=== PATIENT | male | born 1985 | race Caucasian/White ===

== ENCOUNTER 2021-02-03 12:34 | Emergency (ER) | payer MEDICAID, SELFPAY ==
[2021-02-03 12:54] VITALS: BP 130/75; PULSE 75; RESP 17; TEMP 36.7
--- NOTE | 2021-02-03 13:00 | DI.RAD_ITS ---
EXAM: XR KNEE LT 4V+ CLINICAL HISTORY: stepped out of truck, felt pop. TECHNIQUE: 2D digital imaging was performed. COMPARISON: No exams were available for comparison FINDINGS: There is no evidence of fracture nor obvious joint effusion. No osseous lesions. Bone density noemy l. No obvious degenerative changes. No patellar displacement. IMPRESSION: No significant radiographic findings. DATA REPOSITORY: RADIATION DOSE DELIVERED:
--- NOTE | 2021-02-03 13:53 | W.ED.GENAD ---
Discharge Plan Disposition Patient Disposition: HOME Condition: Stable Discharge Details Clinical Impression: Knee pain Primary Care Provider: Caron Olson ED Provider: Timmy Wolfe Discharge Instructions Instructions: Knee Pain (ED) Additional Instructions: X-ray is unremarkable. Rest, elevate, cool compresses every 2 hours for 20 minutes. Wear knee immobilizer, use crutches, weight-bear as tolerated, advance activity as tolerated. [id number] Tylenol and/or Motrin as directed for discomfort. Please watch for new or worsening symptoms and return to the ER for any concerns. I have placed you on the orthopedic list to help expedite outpatient orthopedic care. I recommend contacting the office of Dr. Pacheco in the next couple of days if you are not doing much better with conservative care. Referrals: Jose Luis Pacheco MD [ [facility] STAFF PHYSICIAN] - Discharge Data Discharge Date/Time-TO BE ENTERED AT DEPARTURE: 02/03/21 13:14 Medical Decision Making 35-year-old gentleman jumping out of a truck bed squatting down feeling a sharp pain, pop, burning sensation along the left medial knee. Clinically he appears well, nontoxic. Neuro, vascular, tendon intact. He is using crutches that he brought from home. There is some swelling and tenderness to palpation as well as discomfort with varus stress. Knee appears to be stable although somewhat guarded based upon acute injury. No distracting injuries. No numbness, tingling, weakness. Based upon the mechanism, higher suspicion for soft tissue injury, internal derangement, etc. but will obtain x-ray to rule any bony involvement. X-ray reviewed by me and confirmed by radiology as negative. Discussed negative x-ray with patient. Discussed plan and disposition. Patient already has crutches, will provide with a soft long leg immobilizer. She will use [id number] anti-inflammatory medications, rest, cool compresses, advance activity as tolerated. I have placed him on the orthopedic list to help expedite outpatient care if he is not improving with conservative measures. Patient is comfortable with this plan and has no additional questions or concerns. Medical Records Medical records reviewed: Yes I reviewed the patient's medical records. HPI General Mode of arrival: ambulatory. Date/Time Provider Initiated Documentation: 02/03/21 12:47. Limitations to Documentation: no limitations. Information obtained by: patient. HPI Narrative: This is a 35-year-old gentleman, denies any significant past medical history. He reports that roughly 2-1/2 hours ago he was jumping out of a truck bed, squatted down deeply and felt a sharp pain-pop to the left knee along the anterior medial aspect. He took Tylenol without much relief. He states the pain is moderate at rest worse with movement or attempting to ambulate. He feels what he describes as a burning sensation. He denies any pain in his hip, calf, ankle, foot. Denies any numbness, tingling, weakness. Denies any other injury. He denies any pain directly over his patella. He reports his primary concern is that of an avulsion fracture Related Data Allergies Allergy/AdvReac Type Severity Reaction Status Date / Time Penicillins Allergy Severe Anaphylaxsi Unverified 02/03/21 12:59 s General Stated Complaint: Orthopedic KENNA: 4 Review of Systems Constitutional Constitutional: Denies weakness Gastrointestinal Gastrointestinal: Denies nausea and Denies vomiting Musculoskeletal Musculoskeletal: Denies numbness, Reports stiffness and Denies tingling Integumentary/Breasts Skin/Breast: Denies rash Neurologic Neurologic: Denies numbness, Denies tingling and Denies weakness [facility] Surgical History Tonsillectomy Vasectomy Social History Smoking/Tobacco Use Status: Former Tobacco Use Smoking risk assessment performed?: Yes Drug use: Daily Do you feel safe at home: Yes Do you feel safe in your relationship?: Yes Exam Const General: cooperative, healthy appearing, comfortable and no acute distress Orientation: alert and awake [facility] Head: normal to inspection, normocephalic and atraumatic Eyes General: appearance normal, both eyes and all related structures Conjunctivae: conjunctivae normal Neck Neck: normal visual inspection, trachea midline and supple Resp Effort & Inspection: normal respiratory effort and able to speak in complete sentences Cardio Rate: regular rate Rhythm: regular rhythm Skin General skin exam: no rashes or lesions noted Neuro General: patient alert, patient awake, moves all extremities and no focal motor deficits Cognition: normal cognition Speech: speech normal Gait: gait assisted Method: crutches Motor: muscle tone normal throughout Sensory Exam: no sensory deficits noted Extrem General: full ROM and capillary refill normal Left lower extremity: full ROM, normal capillary refill and knee Details: abnormal to inspection, tenderness, swelling, normal ROM and knee ligament exam normal Details: varus stress test normal (Increased discomfort); no ecchymosis and no deformity Knee images: 1. Diffuse discomfort, minimal swelling. Skin is intact. Patient is able to fully extend his lower extremity and flex to 90 degrees. Neuro, vascular, tendon intact. Skin is intact. Without erythema or ecchymosis. Hip, ankle, foot unremarkable. Normal pedal pulse Psych Appearance: grossly normal Mental Status: mental status grossly normal Course Vital Signs Vital signs: Vital Signs Temperature 36.7 C 02/03/21 12:54 Pulse 75 02/03/21 12:54 Respiratory Rate 17 02/03/21 12:54 Blood Pressure 130/75 02/03/21 12:54 Temperature 36.7 C 02/03/21 12:54 Temperature Source Temporal Artery Scan 02/03/21 12:54 Pulse 75 02/03/21 12:54 Respiratory Rate 17 02/03/21 12:54 Respiratory Effort 02/03/21 13:00 Blood Pressure 130/75 02/03/21 12:54 Pain Level 3 02/03/21 13:00
== END 2021-02-03 13:14 | disposition home or self-care (01) ==
PROVIDERS: Emergency Provider Physician Assistant; PCP Nurse Practitioner Family
DX: S89.82XA Other specified injuries of left lower leg, initial encounter (principal); X58.XXXA Exposure to other specified factors, initial encounter; Y93.39 Activity, other involving climbing, rappelling and jumping off
CPT/HCPCS: 99283; 73564

== ENCOUNTER 2021-11-07 18:20 | Emergency (ER) | payer MEDICAID, SELFPAY ==
[2021-11-07 18:55] VITALS: BP 121/66; PULSE 74; RESP 14; TEMP 36.8; O2SAT 96
--- NOTE | 2021-11-07 19:15 | DI.RAD_ITS ---
Exam(s) XR ELBOW LT COMPLETE EXAM: XR ELBOW LT COMPLETE CLINICAL HISTORY: fall, posterior pain. TECHNIQUE: 2D digital imaging was performed of the left elbow. Three images were obtained. AP, lat eral and oblique views were obtained. COMPARISON: No exams were available for comparison FINDINGS: BONES: No acute fracture is present. No bony destructive lesion is seen. JOINTS: The elbow is normally aligned. No joint effusion is seen. SOFT TISSUE: Normal. IMPRESSION: Unremarkable radiographs of the left elbow. DATA REPOSITORY: RADIATION DOSE DELIVERED:
--- NOTE | 2021-11-07 19:21 | ED.GENADUL_ITS ---
Discharge Plan Disposition Patient Disposition: HOME Condition: Good Discharge Details Clinical Impression: Contusion of left elbow, Contusion of left little finger, Back muscle spasm Primary Care Provider: Caron Olson ED Provider: Tiara Hudson Home Meds and New Rx's Prescriptions: No Action No Known Home Meds RF: 0 Discharge Instructions Instructions: Cyclobenzaprine (By mouth), Contusion in Adults (ED), Muscle Spasm (ED) Additional Instructions: Your imaging of your hand, elbow is also reassuring. As discussed, your back exam is most concerning for muscle spasm. Pelvic spasm, I am sending you home with Flexeril which is a muscle relaxant. Please take this only as directed. Do not consume alcohol or drive while using this medication as it can be charlene ting. In regard to your elbow discomfort, you are being placed in a sling to help with pain. Please come out of it frequently as possible and perform range of motion activities with your shoulder and elbow. Elevate your finger, I do not note any fracture or significant ligamentous injury. However, I would like for you to have this reevaluated by your primary care physician in 1 week. Please call tomorrow to schedule follow-up appointment. Until then, please continue with your splint. If you develop any new or worsening symptoms please seek care urgently once again. Referrals: Caron Olosn [Primary Care Provider] - Discharge Data Discharge Date/Time-TO BE ENTERED AT DEPARTURE: 11/07/21 20:39 Medical Decision Making Patient is a pleasant [id number] 36-year-old male presenting today with chief complaint of left upper extremity pain. He reports that he tripped over his cat and subsequently laid down on his left side striking his elbow and pinky. Denies striking his head, loss of consciousness. Denies any altered sensation. Also has some muscle tenderness to the left-sided back. On exam, patient appears nontoxic. Wedding ring on the left hand was promptly removed and the swelling and discomfort in this area. Patient is full flexion of all of his digits, pain with extension digit, particularly at the PIP joint. Full range of motion of the wrist with no discomfort. No pain over the anatomical snuffbox. No pain with axial thumb loading. Patient does report that he has a chronic deformity to the fifth digit on the left hand associated with previous boxer's fracture. He is a full extension of the elbow, limitation of flexion secondary to discomfort over the olecranon. No break in the skin, swelling, discoloration is appreciated. Patient is neurovascularly intact. He has no evidence to suggest head trauma, C-spine tenderness, chest, abdomen pelvis pain. On the back, patient has no midline tenderness, no step-off deformity. She had muscle spasm along the left aspect of the lumbar spine at area of maximal tenderness. Concern for potential fracture of olecranon as well possible boxer's fracture. I suspicion for lumbar spine fracture based on exam but will evaluate for this with imaging as well. Concern for muscle tenderness region. FINDINGS: Bones/joints: No evidence of acute fracture. Negative for dislocation. Deformity and bowing of the 5th metacarpal are noted, chronic in appearance. Negative for bony erosion or destructive change. Soft tissues: Soft tissue swelling noted adjacent to the 5th metacarpal. Negative for soft tissue air. No foreign bodies observed. IMPRESSION: No acute osseous abnormality. Question chronic healed fracture at the 5th metacarpal. FINDINGS: Bones/joints: No evidence of fracture. Normal alignment. No significant joint space narrowing. Normal anterior fat pad. No evidence of joint effusion. Soft tissues: Negative for radiopaque foreign body. IMPRESSION: No acute osseous abnormality. If symptoms persist, follow-up imaging advised. FINDINGS: Bones/joints: Negative for compression fracture. Endplates are intact. Negative for anterior or posterior translation of vertebral bodies. Facet hypertrophy and sclerosis are noted at L4-L5 and L5- S1. Anterior margin of the sacrum is intact. Oblique views are negative for pars defects. Soft tissues: Unremarkable. IMPRESSION: No acute osseous abnormality. If symptoms persist, follow-up imaging advised. Discussed the findings with the patient. He appears much more comfortable after Tylenol, ibuprofen and a Lidoderm patch application to his back. Ligamentous exam of the fifth digit, location primary pain is, she has 5 and 5 strength flexion but extension at the PIP joint slightly weak. No significant deformity or inability to do so. I would like him to have this reevaluated once the swelling and discomfort goes down. In the interim, plan to splint is for an extended position. Will place sling to help with discomfort at the elbow. However, I did recommend he come out of this frequently throughout the case today only for the next 24 to 48 hours. Encouraged to come out of this, he complete range of motion of the elbow and shoulder. Return precautions were discussed. All the questions and concerns were addressed and he is in agreement this plan. HPI General Mode of arrival: ambulatory . Date/Time Provider Initiated Documentation: 11/07/21 19:00 . Limitations to Documentation: no limitations . Information obtained by: patient and RN notes reviewed . History of Present Illness 36 year old M presents to the emergency department with the chief complaint of left arm injury after fall, described as moderate, with i ntensity rated at 6. Quality is described as aching, and is localized to the left and upper extremity. Patient reports no radiation. Patient started experiencing this minute(s) and it has been constant. Immobilization improves symptom(s), Movement worsens symptoms . Patient notes no other symptoms.. Patient did receive the following treatments prior to arrival, none Related Data Home Medications Medication Instructions Recorded Confirmed Unknown [No Known Home Meds] 02/10/21 11/07/21 Allergies Allergy/AdvReac Type Severity Reaction Status Date / Time Penicillins Allergy Severe Anaphylaxsi Unverified 11/07/21 18:58 s General Stated Complaint: Orthopedic KENNA: 4 Review of Systems Constitutional Constitutional: Reports as per HPI, Denies headache(s) and Denies weakness Eyes Eyes: Reports as per HPI and Denies change in vision ENT Ears, Nose, Mouth, and Throat: Denies headache(s) Cardiovascular Cardiovascular: Reports as per HPI, Denies chest pain and Denies dyspnea Respiratory Respiratory: Reports as per HPI, Denies cough, Denies pain on inspiration and Denies dyspnea Gastrointestinal Gastrointestinal: Reports as per HPI, Denies abdominal pain, Denies nausea and Denies vomiting Genitourinary Genitourinary: Reports as per HPI and Denies urinary incontinence Musculoskeletal Musculoskeletal: Reports as per HPI Integumentary/Breasts Skin/Breast: Reports as per HPI and Denies rash Neurologic Neurologic: Reports as per HPI, Denies headache(s), Denies localized weakness, Denies paresthesias and Denies weakness PFSH All Active Problems (Updated 11/07/21 @ 20:33 by FRANCESCA Kelley) Contusion of left elbow (Acute) Contusion of left little finger (Acute) Back muscle spasm (Acute) Muscle strain of left thigh (Acute) Admission for vasectomy (Acute) Knee pain (Acute) Surgical History Tonsillectomy Vasectomy Social History Smoking/Tobacco Use Status: Former Tobacco Use Smoking risk assessment performed?: Yes Alcohol Intake: current Alcohol Intake frequency: 0-2 drinks per day Alcohol type: beer Drug use: Daily Substance use type: marijuana Do you feel safe at home: Yes Do you feel safe in your relationship?: Yes Exam Const General: cooperative, healthy appearing, uncomfortable (splinting left arm, appears uncomfortable), no acute distress, well developed and well groomed Nutritional Appearance: well nourished and overweight Orientation: alert, awake and oriented x3 HENMT Head: normal to inspection, no palpable skull fracture, normocephalic and atraumatic Ears: hearing grossly normal bilaterally and external ears normal General nose exam: external nose normal Eyes General: appearance normal, both eyes and all related structures Alignment and Position: alignment normal Periorbital: periorbital findings normal Neck Neck: normal visual inspection, full ROM, trachea midline and supple Chest Chest: normal inspection of the chest, normal palpation of entire chest wall, no crepitus and no localized rib tenderness Resp Effort & Inspection: normal respiratory effort, able to speak in complete sentences and no respiratory distress Auscultation: clear to auscultation bilaterally, no rales, no rhonchi and no wheezes Cardio Rate: regular rate Rhythm: regular rhythm Heart Sounds: S1 normal and S2 normal GI Inspection: normal to inspection, no abdominal wall ecchymosis, no edema and non-distended Palpation: soft, no hepatosplenomegaly, not firm, no guarding, no pulsatile masses, not rigid and nontender Auscultation: normal bowel sounds Back/Spine/Pelvis Back: no CVA tenderness Cervical Spine: normal cervical lordosis and cervical ROM normal Thoracic/Lumbar Spine: thoracic and lumbar spine normal to inspection, thoraco- lumbar ROM normal, No thoraco-lumbar ROM limited, No thoraco-lumbar spasm and No thoracic spinal tenderness Pelvis: no pain with anterior-posterior compression and no pain with lateral compression Skin General skin exam: no rashes or lesions noted Lesions: no lesions Rashes: no rashes Trauma: no lacerations or abrasions Wounds: no wounds Neuro General: patient alert, patient awake, patient oriented x3, gait normal, tone normal and moves all extremities Cranial Nerves: CN's II-XI intact bilaterally Cognition: normal cognition Speech: speech normal Gait: normal gait Motor: muscle tone normal throughout and strength 5/5 throughout Sensory Exam: no sensory deficits noted (no saddle paresthesias) Extrem General: normal to inspection and capillary refill normal Right upper extremity: normal to inspection Left upper extremity: normal to inspection, normal capillary refill, no joint enlargement, shoulder/upper arm Details: inspection abnormal, elbow/forearm Details: normal to inspection, tenderness Location: of the olecranon and distal pulses intact; no swelling, ROM abnormal (full flexion, pain posteriorly with full extension, full supination/pronation), no unusual warmth, no abrasions, no lacerations, no ecchymosis and no deformity, wrist Details: normal to inspection, normal ROM, normal vascular exam and radial pulse present; no tenderness, no swelling and no deformity and hand Details: normal to inspection, normal capillary refill, neuromotor exam normal (slightly weak with extension at PIP 5th digit but still able to do it), neurosensory exam normal, tendon exam normal, tenderness Location: of the 5th digit Location: involving the entire digit and no swelling; no unusual warmth, no swelling and no ecchymosis Psych Appearance: grossly normal and well kempt Mental Status: mental status grossly normal Speech and Movement: speech and movement normal Course Vital Signs Vital signs: Vital Signs Temperature 36.8 C 11/07/21 18:55 Pulse 74 11/07/21 18:55 Respiratory Rate 14 11/07/21 18:55 Blood Pressure 121/66 11/07/21 18:55 Pulse Oximetry 96 11/07/21 18:55 Temperature 36.8 C 11/07/21 18:55 Temperature Source Temporal Artery Scan 11/07/21 18:55 Pulse 74 11/07/21 18:55 Respiratory Rate 14 11/07/21 18:55 Respiratory Effort Non-Labored 11/07/21 18:59 Blood Pressure 121/66 11/07/21 18:55 Blood Pressure Position Sitting 11/07/21 18:55 Pulse Oximetry 96 11/07/21 18:55 Oxygen Delivery Method Room Air 11/07/21 18:55 Oxygen Flow Rate 0 11/07/21 18:55 Pain Level 6 11/07/21 18:55 PAWSS Have you Been Recently Intoxicated or Drunk Within the Last 30 days?: No Have you Ever Experienced Previous Episodes of Alcohol Withdrawal?: No Have you ever Experienced Withdrawal Seizures?: No Have you ever Experienced Delirium Tremens(DT)s?: No Have you ever undergone Alcohol Rehabilitation Treatment (i.e, inpt ot outpatient treatment programs)?: No Have you ever Experienced Blackouts?: No Have you ever Combined Alcohol with other Downers within the last 90 days?: No Have you ever Combined Alcohol with any other Substance of Abuse during the last 90 days?: No Positive Blood Alcohol level on Presentation? [PCS.BAL]: No Evidence of Increased Autonomic Activity (i.e. HR>120, tremor, sweating, agitation, nausea)?: No Result: 0
[2021-11-07] MEDS: Ibuprofen 600 MG TAB PO (19:30)
[2021-11-07] MEDS: Acetaminophen 500 MG TAB 1000 MG PO (19:30)
[2021-11-07] MEDS: Lidocaine 5% Patch 1 PATCH TP (19:30)
--- NOTE | 2021-11-07 19:51 | DI.RAD_ITS ---
Exam(s) XR HAND LT COMPLETE EXAM: XR HAND LT COMPLETE CLINICAL HISTORY: difficulty with ROM of 5th digit. TECHNIQUE: 2D digital imaging was performed of the left hand. Three views were obtained. AP, later al and oblique views were obtained. COMPARISON: No exams were available for comparison FINDINGS: BONES: No acute fracture is present. No bony destructive lesion is seen. There is a bowing deformity of the 5th metacarpal most suggestive of old healed fracture. JOINTS: No dislocation present. SOFT TISSUE: Soft tissue swelling adjacent to the 5th metacarpal. IMPRESSION: No acute fracture or dislocation. DATA REPOSITORY: RADIATION DOSE DELIVERED:
--- NOTE | 2021-11-07 19:51 | DI.RAD_ITS ---
Exam(s) XR LUMBAR SPINE COMPLETE EXAM: XR LUMBAR SPINE COMPLETE CLINICAL HISTORY: fall, pain along left side. TECHNIQUE: 2D digital imaging was performed of the lumbar spine. Five images were obtained. AP, la teral, right oblique, left oblique and L5-S1 spot views were obtained. COMPARISON: No exams were available for comparison FINDINGS: BONES: No fracture or destructive lesion. Vertebral bodies are unremarkable. Degenerative changes of the facets are seen at L4-5 and L5-S1. DISKS: Intervertebral disc spaces are maintained. ALIGNMENT: Lumbar spinal alignment is within normal limits. No spondylolysis or spondylolisthesis. SOFT TISSUE: Normal. IMPRESSION: No acute fracture or subluxation. DATA REPOSITORY: RADIATION DOSE DELIVERED:
--- NOTE | 2021-11-07 20:15 | DI.VRAD_ITS ---
PROCEDURE INFORMATION: Exam: XR Lumbosacral Spine Exam date and time: 11/07/2021 7:23 PM Age: 36 years old Clinical indication: Injury or trauma; Blunt trauma (contusions or hematomas); Injury date: 11/07/21; Injury details: Fall down stairs; Patient HX: Pain along left side TECHNIQUE: Imaging protocol: XR of the lumbosacral spine. Views: 4 or 5 views. COMPARISON: No relevant prior studies available. FINDINGS: Bones/joints: Negative for compression fracture. Endplates are intact. Negative for anterior or posterior translation of vertebral bodies. Facet hypertrophy and sclerosis are noted at L4-L5 and L5-S1. Anterior margin of the sacrum is intact. Oblique views are negative for pars defects. Soft tissues: Unremarkable. IMPRESSION: No acute osseous abnormality. If symptoms persist, follow-up imaging advised. Dictated and Authenticated by: Ananda Peace MD. Ordering:KEZIA Menjivar MD
--- NOTE | 2021-11-07 20:17 | DI.VRAD_ITS ---
PROCEDURE INFORMATION: Exam: XR Left Hand Exam date and time: 11/07/2021 7:23 PM Age: 36 years old Clinical indication: Injury or trauma; Fall; Blunt trauma (contusions or hematomas); Hand; Left; Injury date: 11/07/21; Injury details: Difficulty with rom of 5th digit TECHNIQUE: Imaging protocol: XR Left hand. Views: 3 or more views. COMPARISON: CR LEFT ELBOW COMPLETE 10/29/2017 3:05 PM FINDINGS: Bones/joints: No evidence of acute fracture. Negative for dislocation. Deformity and bowing of the 5th metacarpal are noted, chronic in appearance. Negative for bony erosion or destructive change. Soft tissues: Soft tissue swelling noted adjacent to the 5th metacarpal. Negative for soft tissue air. No foreign bodies observed. IMPRESSION: No acute osseous abnormality. Question chronic healed fracture at the 5th metacarpal. Dictated and Authenticated by: Ananda Peace MD. Ordering:KEZIA Menjivar MD
--- NOTE | 2021-11-07 20:18 | DI.VRAD_ITS ---
PROCEDURE INFORMATION: Exam: XR Left Elbow Exam date and time: 11/07/2021 7:23 PM Age: 36 years old Clinical indication: Injury or trauma; Blunt trauma (contusions or hematomas); Elbow; Left; Injury date: 10/18/21; Injury details: Fall down stairs; Additional info: Difficulty with rom of 5th digit TECHNIQUE: Imaging protocol: XR Left elbow. Views: 3 or more views. COMPARISON: CR LEFT ELBOW COMPLETE 10/29/2017 3:05 PM FINDINGS: Bones/joints: No evidence of fracture. Normal alignment. No significant joint space narrowing. Normal anterior fat pad. No evidence of joint effusion. Soft tissues: Negative for radiopaque foreign body. IMPRESSION: No acute osseous abnormality. If symptoms persist, follow-up imaging advised. Dictated and Authenticated by: Ananda Peace MD. Ordering:KEZIA Menjivar MD
== END 2021-11-07 20:39 | disposition home or self-care (01) ==
PROVIDERS: Emergency Provider Physician Assistant; PCP Nurse Practitioner Family
DX: S50.02XA Contusion of left elbow, initial encounter (principal); S60.052A Contusion of left little finger without damage to nail, initial encounter; M62.830 Muscle spasm of back; W10.8XXA Fall (on) (from) other stairs and steps, initial encounter; M54.9 Dorsalgia, unspecified
CPT/HCPCS: 99284; 72110; 73080; 73130; 99283

== ENCOUNTER 2022-05-18 12:51 | Emergency (ER) | payer MEDICAID, SELFPAY ==
[2022-05-18] VITALS (45 sets, daily range): BP systolic 104–123; BP diastolic 46–73; PULSE 48–86; RESP 9–22; TEMP 36.5; O2SAT 92–99
--- NOTE | 2022-05-18 12:45 | RT.EKG_ITS ---
APPROVED REPORT Exam: Resting ECG Reason for Exam: SYNCOPE Patient Location: E HR:49 bpm ECG Measurements Heart Rate 49 AXIS SC 149 P 60 QRSd 101 QRS 13 QT 438 T 13 QTc 395 Conclusion Sinus bradycardia...rate< 60 ST elev, probable normal early repol pattern...ST elevation, age<55. Sinus. Benign early repolarization. Peaked T waves. No signficant change from previous EKG. No STEMI.
[2022-05-18] MEDS: Normal Saline 1,000 ML 1000 ML IV ×2 (13:15→14:45)
[2022-05-18 13:22] LABS: Source Nasal/Nares
[2022-05-18 13:28] LABS: HCT 39.8 % (40.0-50.0); HGB 14.2 g/dL (13.5-17.5); MCH 32.7 pg (27.0-33.0); MCHC 35.7 % (32.0-36.0); MCV 92 fL (80-95); MPV 9.6 fL (8.0-11.0); Platelet Count 228 10^3/uL (130-400); RBC 4.34 10^6/uL (4.36-5.78); RDW 11.9 % (11.8-14.1); RDW-SD 40.4 fL; WBC 11.49 10^3/uL (4.4-10.8)
[2022-05-18 13:41] LABS: ALT 62 U/L (16-63); AST 28 U/L (15-37); Albumin 4.2 g/dL (3.4-5.0); Alkaline Phosphatase 48 U/L (46-116); Anion Gap 7.4 mmol/L (3-11); BUN 12 mg/dL (7-18); Bilirubin, Total 0.5 mg/dL (0.2-1.0); CO2 26.6 mmol/L (21.0-32.0); CREATININE 1.1 mg/dL (0.70-1.30); Calcium 8.8 mg/dL (8.5-10.1); Chloride 103 mmol/L (98-107); Glucose 103 mg/dL (74-106); Potassium 3.6 mmol/L (3.5-5.1); Sodium 137 mmol/L (136-145); Total Protein 7.1 g/dL (6.4-8.2); Troponin I < 50 ng/L (<or=60)
--- NOTE | 2022-05-18 13:45 | DI.RAD_ITS ---
Exam(s) XR KNEE RT 4V AP,LAT,MARK,PAT EXAM: XR KNEE RT 4V AP,LAT,MARK,PAT CLINICAL HISTORY: fall with direct injury to patella, r/o fx. TECHNIQUE: 2D digital imaging was performed. Four views. COMPARISON: CR XR KNEE LT 4V+ from 02/03/2021 FINDINGS: BONES: No acute fracture is present. No bony destructive lesion is seen. JOINTS: The knee is normally aligned. No joint effusion is seen. SOFT TISSUE: Normal. IMPRESSION: Unremarkable radiographs of the right knee. DATA REPOSITORY: RADIATION DOSE DELIVERED:
--- NOTE | 2022-05-18 13:45 | DI.CT_ITS ---
Exam(s) CT HEAD CERV SPINE FACIAL WO EXAM: CT HEAD CERV SPINE FACIAL WO CLINICAL HISTORY: fall w/ chin injury, syncope. TECHNIQUE: Imaging Protocol: Axial computed tomography images with coronal and sagittal reformatted images were created and reviewed COMPARISON: No exams were available for comparison FINDINGS: CT Head: Ventricles and Extra axial spaces: Normal in size and morphology for the patient's age. Hemorrhage: None. Cerebral parenchyma: Normal. Midline shift: None. Brainstem/Cerebellum: Normal. Calvarium: Normal. Visualized Paranasal sinuses/Mastoids: Mucous retention cyst left maxillary sinus. Mucosal thickenin g frontal, sphenoid and ethmoid sinuses as well as right maxillary sinus. Soft Tissues: Unremarkable. CT Face: Facial Bones: No definite fracture is noted in facial bones. Sinuses and Mastoids: Mucous retention in both maxillary sinus. Mucosal thickening of the ethmoid a nd sphenoid sinuses as well as frontal sinuses. Mastoid air cells clear. Globes, extraocular muscles, optic nerves and retrobulbar fat: Normal. Upper aerodigestive tract: Normal. Mandible and bilateral temporomandibular joints: Normal. Soft tissues: Normal. CT Cervical Spine: Bones: No acute fracture or subluxation. Degenerative disc changes are seen at C4-5 and C5-6. Soft Tissues: Unremarkable. Lung Apices: Clear. IMPRESSION: 1. No acute intracranial process. 2. No acute fracture or subluxation in the cervical spine. 3. No acute facial fracture. RADIATION DOSE DELIVERED: 2,363.59mGy.cm Total DLP DATA REPOSITORY: All CT scans at this facility are submitted to the National Radiology Data Registry (NRDR) Dose Index Registry (DIR) with the [employer] ([employer]). RADIATION OPTIMIZATION: All CT scans at this facility use at least one of these dose optimization te chniques: automated exposure control; mA and/or kV adjustment per patient size (includes targeted exa ms where dose is matched to clinical indication); or iterative reconstruction.
--- NOTE | 2022-05-18 13:45 | DI.RAD_ITS ---
Exam(s) XR CHEST 2V PA LATERAL EXAM: XR CHEST 2V PA LATERAL CLINICAL HISTORY: syncope, r/o acute disease TECHNIQUE: 2D digital imaging was performed. COMPARISON: CR LEFT CLAVICLE from 10/09/2017 FINDINGS: MEDIASTINUM: Normal. HEART: Normal. PULMONARY VASCULATURE: Normal. LUNGS: Clear. PLEURAL SPACE: No pleural effusion or pneumothorax. BONE:Unremarkable for age. IMPRESSION: No acute abnormality. DATA REPOSITORY: RADIATION DOSE DELIVERED:
--- NOTE | 2022-05-18 13:47 | ED.GENADUL_ITS ---
Discharge Plan Disposition Patient Disposition: HOME Condition: Stable Discharge Details Clinical Impression: Episode of syncope, Contusion of lip, Contusion of right knee, Dizziness Primary Care Provider: SHWETA NUNN ED Provider: Meagan Gaspar Home Meds and New Rx's Prescriptions: No Action No Known Home Meds Discharge Instructions Instructions: Syncope (ED), Contusion in Adults (ED), Dizziness (ED) Additional Instructions: Your labs and imaging today are reassuring and show no evidence of acute concerning or significant findings. Please return the satellite project site monitor to the hospital as directed. You have been placed on care management list to arrange for a follow-up appointment for reevaluation in the next week and for referral to cardiology and/or neurology if indicated. Return immediately to the emergency department if you develop any worsening or new concerning symptoms. Discharge Data Discharge Date/Time-TO BE ENTERED AT DEPARTURE: 05/18/22 17:43 Discharge Physician: Meagan Gaspar Medical Decision Making 1310 -- 37-year-old male presents with syncopal episode followed by dizziness, mouth pain and right knee pain status post fall with syncopal episode. States he has not eaten or drank any water today. Has drank a pot of coffee today. Vitals within normal limits. EKG notes a rate of 49, sinus with likely benign early repolarization. Does not appear significantly different compared to previous EKG 2006. Patient has a contusion and superficial abrasion to the right lower lip. Tongue normal to inspection. He has a superficial abrasion to the right anterior knee with some pain with range of motion. Chest and abdomen nontender. No midline spinal tenderness. No focal deficits. Differential diagnosis includes vasovagal syncope in the setting or dehydration, electrolyte abnormality, arrhythmia, COVID, ACS. History and presentation does not appear consistent with PE, CVA or meningitis. Consider seizure, however there is no report of significant post-ictal episode, tongue laceration or urinary incontinence. Will place an IV, bolus IV fluids, screening labs, CT head, facial bones and cervical spine, chest x-ray and right knee x-ray. We will give a dose of IV Tylenol. 1700 -- Labs and imaging reviewed and unremarkable. COVID-negative. CT imaging of head neck and face negative. X-rays unremarkable. Patient reassessed and he was able to ambulate to the bathroom and denied any dizziness or headache. Patient was given a total of 2 L of fluid and ate a meal and feels much better and is requesting to go home. 48-hour satellite project site monitor placed. Disposition decision made weighing the risks and benefits of hospitalization versus outpatient treatment, the risk for further decompensation, and the patient's wishes. He was placed on care management list to arrange for a follow-up appointment with his primary care doctor within the next week. Usual and customary return precautions given prior to discharge. Medical Records Medical records reviewed: Yes I reviewed the patient's medical records. Imaging Data Radiologic Study: Radiologist's impression: CT HEAD CERV SPINE ? FACIAL WO CLINICAL HISTORY: ? fall w/ chin injury, syncope. ? TECHNIQUE:? Imaging Protocol: Axial computed tomography images with coronal and sagittal reformatted images were created and reviewed COMPARISON:? No exams were available for comparison FINDINGS: CT Head: Ventricles and Extra axial spaces: Normal in size and morphology for the patient's age. Hemorrhage: None. Cerebral parenchyma: Normal. Midline shift: None. Brainstem/Cerebellum: Normal. Calvarium: Normal. Visualized Paranasal sinuses/Mastoids: Mucous retention cyst left maxillary sinus.? Mucosal thickening frontal, sphenoid and ethmoid sinuses as well as right maxillary sinus. Soft Tissues: Unremarkable. CT Face: Facial Bones:? No definite fracture is noted in facial bones. Sinuses and Mastoids:? Mucous retention in both maxillary sinus.? Mucosal thickening of the ethmoid and sphenoid sinuses as well as frontal sinuses.? Mastoid air cells clear.? Globes, extraocular muscles, optic nerves and retrobulbar fat:? Normal. Upper aerodigestive tract: Normal. Mandible and bilateral temporomandibular joints:? Normal. Soft tissues: Normal. CT Cervical Spine: Bones: No acute fracture or subluxation.? Degenerative disc changes are seen at C4-5 and C5-6.? Soft Tissues: Unremarkable. Lung Apices: Clear. IMPRESSION: 1. No acute intracranial process. 2. No acute fracture or subluxation in the cervical spine. 3. No acute facial fracture. XR KNEE RT 4V AP,LAT,MARK,PAT CLINICAL HISTORY: ? fall with direct injury to patella, r/o fx.? TECHNIQUE:? 2D digital imaging was performed.? Four views. COMPARISON:? CR XR KNEE LT 4V+ from 02/03/2021 FINDINGS: BONES: No acute fracture is present. No bony destructive lesion is seen. JOINTS: The knee is normally aligned. No joint effusion is seen. SOFT TISSUE: Normal. IMPRESSION: Unremarkable radiographs of the right knee. XR CHEST 2V PA ? LATERAL CLINICAL HISTORY:? syncope, r/o acute disease TECHNIQUE:? 2D digital imaging was performed. COMPARISON:? CR LEFT CLAVICLE from 10/09/2017 FINDINGS: MEDIASTINUM: Normal.? HEART: Normal. PULMONARY VASCULATURE: Normal. LUNGS: Clear. ? PLEURAL SPACE: No pleural effusion or pneumothorax. BONE:Unremarkable for age.? IMPRESSION: No acute abnormality.? Lab Data Lab results reviewed: Yes I reviewed the patient's lab results. Labs: Laboratory Tests Range/Units 05/18/22 05/18/22 05/18/22 13:12 13:12 13:12 WBC (4.4-10.8) 10^3/uL 11.49 H RBC (4.36-5.78) 10^6/uL 4.34 L Hgb (13.5-17.5) g/dL 14.2 Hct (40.0-50.0) % 39.8 L MCV (80-95) fL 92 MCH (27.0-33.0) pg 32.7 MCHC (32.0-36.0) % 35.7 RDW (11.8-14.1) % 11.9 Plt Count (130-400) 10^3/uL 228 MPV (8.0-11.0) fL 9.6 Immature Gran % See Differential Neutrophils % 36.0 Lymphocytes % 46.0 Atypical Lymphs % 6 Monocytes % 6.0 Eosinophils % 1.0 Basophils % 1.0 Nucleated RBC % (0.0-0.3) % 0.0 Absolute Neutrophils (1.2-6.7) 10^3/uL 4.14 Absolute Lymphocytes (1.2-3.4) 10^3/uL 5.97 H Absolute Monocytes (0.1-0.8) 10^3/uL 0.69 Absolute Eosinophils (0.0-0.7) 10^3/uL 0.11 Absolute Basophils (0.0-0.2) 10^3/uL 0.11 RBC Morphology Normal Sodium (136-145) mmol/L 137 Potassium (3.5-5.1) mmol/L 3.6 Chloride (98-107) mmol/L 103 Carbon Dioxide (21.0-32.0) mmol/L 26.6 Anion Gap (3-11) mmol/L 7.4 BUN (7-18) mg/dL 12 Creatinine (0.70-1.30) mg/dL 1.1 Estimated GFR/1.73 m2 (mL/min/1.73m2) >= 60.00 Glucose (74-106) mg/dL 103 Calcium (8.5-10.1) mg/dL 8.8 Magnesium (1.8-2.4) mg/dL 2.0 Total Bilirubin (0.2-1.0) mg/dL 0.5 AST (15-37) U/L 28 ALT (16-63) U/L 62 Alkaline Phosphatase (46-116) U/L 48 Troponin I (<or=60) ng/L < 50 Total Protein (6.4-8.2) g/dL 7.1 Albumin (3.4-5.0) g/dL 4.2 COVID-19 Source Nasal/Nares SARS-CoV-2 (PCR) (Negative) Negative ECG Data Attestation: I personally reviewed and interpreted this ECG (s) as follows: Interpretation: Rate of 49, sinus, benign early repolarization, no stemi. Peaked T waves, but otherwise no significant change from previous ekg. HPI General Mode of arrival: ambulatory . Date/Time Provider Initiated Documentation: 05/18/22 13:01 . Limitations to Documentation: no limitations . Information obtained by: patient . HPI Narrative: Patient is a 37-year-old male who smokes daily marijuana and drinks 1 beer daily presents for a syncopal episode followed by dizziness prior to arrival. Patient states he drank a pot of coffee and has not drank any water or eaten anything today. He states around noon he stood up to walk into a different room and several minutes later was lying on the ground. He states he does not recall feeling dizzy or lightheaded prior to the fall. He states he hit his left and both knees on the ground. He is complaining of lower lip and chin and right knee pain. He states he stood up quickly shortly after his syncopal episode and felt dizziness which he describes as a spinning sensation and vomited 1 time. He states he has been isolating from his and child who currently have COVID. Patient states he is vaccinated for COVID and has had 4 negative at home COVID test recently. He has had some nasal congestion but otherwise denies any other acute recent complaints. He denies fever, chest pain, shortness of breath, palpitations, abdominal pain or urinary symptoms at the time of the fall or recently. He states he last drank 1 alcoholic drink last night and did smoke marijuana today. Related Data Home Medications Medication Instructions Recorded Confirmed Unknown [No Known Home Meds] 02/10/21 05/18/22 Allergies Allergy/AdvReac Type Severity Reaction Status Date / Time Penicillins Allergy Severe Anaphylaxsi Unverified 05/18/22 13:02 s General Stated Complaint: Dizzy/Sync KENNA: 3 Review of Systems All systems reviewed & are unremarkable except as noted in HPI and below Constitutional Constitutional: Denies chills, Denies excessive sweating, Denies fatigue, Denies fever(s), Denies weakness and Denies weight loss Eyes Eyes: Reports system reviewed and no additional complaints, except as documented and Denies blurry vision ENT Ears, Nose, Mouth, and Throat: Denies vertigo, Reports dizziness, Denies otalgia, Denies nasal congestion, Denies sore throat and Denies throat swelling Cardiovascular Cardiovascular: Denies chest pain, Reports syncope, Denies rapid heart rate and Denies dyspnea Respiratory Respiratory: Denies chest congestion, Denies cough, Denies pain on inspiration and Denies dyspnea Gastrointestinal Gastrointestinal: Denies abdominal pain, Denies diarrhea and Denies vomiting Genitourinary Genitourinary: Denies hematuria, Denies dysuria and Denies flank pain Musculoskeletal Musculoskeletal: Denies back pain and Denies joint swelling Integumentary/Breasts Skin/Breast: Denies lesions and Denies rash Neurologic Neurologic: Denies behavioral changes, Denies confusion, Denies vertigo, Reports dizziness, Reports syncope, Denies localized weakness and Denies weakness Psychiatric Psychiatric: Denies behavioral changes, Denies confusion and Denies depression Endocrine Endocrine: Denies excessive sweating and Denies fatigue Hematologic/Lymphatic Hematologic/Lymphatic: Denies easy bruising and Denies lymphadenopathy Allergic/Immunologic Allergic/Immunologic: Denies throat swelling PFSH All Active Problems (Updated 05/18/22 @ 17:37 by Meagan Gaspar DO) Episode of syncope (Chronic) Contusion of lip (Acute) Contusion of right knee (Acute) Dizziness (Acute) Muscle strain of left thigh (Acute) Admission for vasectomy (Acute) Knee pain (Acute) Medical History (Updated 05/18/22 @ 17:37 by Meagan Gaspar DO) No significant past medical history Surgical History Tonsillectomy Vasectomy Social History Smoking/Tobacco Use Status: Former Tobacco Use Smoking risk assessment performed?: Yes Alcohol Intake: current Alcohol Intake frequency: 0-2 drinks per day Alcohol type: beer Drug use: Daily Substance use type: marijuana Do you feel safe at home: Yes Do you feel safe in your relationship?: Yes Exam Const General: cooperative, healthy appearing and no acute distress Orientation: alert, awake and oriented x3 HENMT Head: normal to inspection Ears: hearing grossly normal bilaterally, external ears normal and TM's normal bilaterally General nose exam: external nose normal Face and sinus: normal facial exam Face images: 1. Ecchymosis and superficial laceration noted to the right lower lip. Active bleeding. 2. Minimal ecchymosis. Tenderness to palpation. Mouth: oral mucosae normal and tongue normal Teeth and gingiva: dentition normal Throat: posterior oropharynx normal Eyes General: appearance normal, both eyes and all related structures Periorbital: periorbital findings normal Eyelids: eyelids normal Pupils: PERRL EOM: EOM intact bilaterally Neck Neck: normal visual inspection Lymphatic: no lymphadenopathy noted Chest Chest: normal inspection of the chest, normal palpation of entire chest wall and no tenderness Resp Effort & Inspection: normal respiratory effort and able to speak in complete sentences Auscultation: clear to auscultation bilaterally Cardio Rate: regular rate Rhythm: regular rhythm GI Inspection: normal to inspection and no abdominal wall ecchymosis Palpation: soft, not firm, no guarding, no hepatosplenomegaly, no masses and nontender Auscultation: normal bowel sounds Back/Spine/Pelvis Back: no CVA tenderness Cervical Spine: No cervical spinal tenderness Thoracic/Lumbar Spine: No thoracic spinal tenderness and No lumbar spinal tenderness Skin General skin exam: no rashes or lesions noted Neuro General: patient alert, patient awake, patient oriented x3, moves all extremities, no meningeal signs and no focal motor deficits Cognition: normal cognition Speech: speech normal Gait: normal gait Motor: muscle tone normal throughout and strength 5/5 throughout Sensory Exam: no sensory deficits noted Extrem General: normal to inspection, full ROM and capillary refill normal Knee images: 1. 3 linear superficial abrasions. Pain with range of motion and tenderness to palpation overlying patella. No obvious deformity. Other: Normal range of motion without pain to bilateral upper extremities and left lower extremity. Psych Appearance: grossly normal Mental Status: mental status grossly normal Speech and Movement: speech and movement normal Affect: normal affect Thought Process: normal Course Vital Signs Vital signs: Vital Signs Temperature 97.7 F 05/18/22 12:58 Pulse 57 L 05/18/22 12:58 Respiratory Rate 21 05/18/22 12:58 Blood Pressure 121/67 05/18/22 12:58 Pulse Oximetry 97 05/18/22 12:58 Temperature 97.7 F 05/18/22 12:58 Temperature Source Skin 05/18/22 12:58 Pulse 57 L 05/18/22 12:58 Respiratory Rate 21 05/18/22 12:58 Respiratory Effort Non-Labored 05/18/22 13:02 Blood Pressure 121/67 05/18/22 12:58 Blood Pressure Position Sitting 05/18/22 12:58 Pulse Oximetry 97 05/18/22 12:58 Oxygen Delivery Method Room Air 05/18/22 12:58 Oxygen Flow Rate 0 05/18/22 12:58 Lab/Test Results Lab/Test Results: Laboratory Tests Range/Units 05/18/22 05/18/22 13:12 13:12 Sodium (136-145) mmol/L 137 Potassium (3.5-5.1) mmol/L 3.6 Chloride (98-107) mmol/L 103 Carbon Dioxide (21.0-32.0) mmol/L 26.6 Anion Gap (3-11) mmol/L 7.4 BUN (7-18) mg/dL 12 Creatinine (0.70-1.30) mg/dL 1.1 Estimated GFR/1.73 m2 (mL/min/1.73m2) >= 60.00 Glucose (74-106) mg/dL 103 Calcium (8.5-10.1) mg/dL 8.8 Magnesium (1.8-2.4) mg/dL 2.0 Total Bilirubin (0.2-1.0) mg/dL 0.5 AST (15-37) U/L 28 ALT (16-63) U/L 62 Alkaline Phosphatase (46-116) U/L 48 Troponin I (<or=60) ng/L < 50 Total Protein (6.4-8.2) g/dL 7.1 Albumin (3.4-5.0) g/dL 4.2 COVID-19 Source Nasal/Nares PAWSS Have you Been Recently Intoxicated or Drunk Within the Last 30 days?: No Have you Ever Experienced Previous Episodes of Alcohol Withdrawal?: No Have you ever Experienced Withdrawal Seizures?: No Have you ever Experienced Delirium Tremens(DT)s?: No Have you ever undergone Alcohol Rehabilitation Treatment (i.e, inpt ot outpatient treatment programs)?: No Have you ever Experienced Blackouts?: No Have you ever Combined Alcohol with other Downers within the last 90 days?: No Have you ever Combined Alcohol with any other Substance of Abuse during the last 90 days?: No Positive Blood Alcohol level on Presentation? [PCS.BAL]: No Evidence of Increased Autonomic Activity (i.e. HR>120, tremor, sweating, agitation, nausea)?: No Result: 0
[2022-05-18 13:48] LABS: Absolute Lymphocyte Count 5.97 10^3/uL (1.2-3.4); Absolute Neutrophil Count 4.14 10^3/uL (1.2-6.7); Atypical Lymphocytes % 6
[2022-05-18 13:49] LABS: Absolute Basophil Count 0.11 10^3/uL (0.0-0.2); Absolute Eosinophil Count 0.11 10^3/uL (0.0-0.7); Absolute Monocyte Count 0.69 10^3/uL (0.1-0.8); Diff Comment Manual Differential; RBC Morphology Normal
[2022-05-18 14:12] LABS: COVID-19 PCR Negative (Negative)
--- NOTE | 2022-05-18 17:42 | NUR.NOTE ---
Nursing Note: Pt info faxed to PCP for follow up next week for Syncope episode. Sarah, ED
== END 2022-05-18 17:43 | disposition home or self-care (01) ==
PROVIDERS: Emergency Provider Physician Assistant; PCP Nurse Practitioner Family
DX: R55 Syncope and collapse (principal); R42 Dizziness and giddiness; S01.511A Laceration without foreign body of lip, initial encounter; S80.01XA Contusion of right knee, initial encounter; F17.210 Nicotine dependence, cigarettes, uncomplicated; Z20.822 Contact with and (suspected) exposure to COVID-19; W19.XXXA Unspecified fall, initial encounter
CPT/HCPCS: 80053; 87635; 93005; 96360; 96361; 99285; 70450; 70486; 71046; 72125; 73564; 83735; 84484; 85025; 93010; 99284

== ENCOUNTER 2022-05-18 15:32 | Outpatient (RCR) | payer MEDICAID, SELFPAY ==
--- NOTE | 2022-05-18 15:30 | HOLTER_ITS ---
APPROVED REPORT Conclusion This is a 48-hour Holter monitor Rhythm throughout was sinus/sinus arrhythmia with an average heart rate of 70. Minimum was 47, maxim um 112 There were no ventricular dysrhythmias There were very rare atrial premature beats There was no atrial fibrillation, no high-grade AV block, no pauses greater than 3 seconds No patient symptoms were reported
== END 2022-06-14 23:59 | disposition home or self-care (01) ==
LOC: RT 15:32
PROVIDERS: PCP Nurse Practitioner Family; Visit Provider Nurse Practitioner Family
DX: R07.89 Other chest pain (principal); I49.8 Other specified cardiac arrhythmias
CPT/HCPCS: 93225; 93226

== ENCOUNTER 2023-01-10 18:27 | Emergency (ER) | payer MEDICAID, SELFPAY ==
[2023-01-10 18:30] VITALS: PULSE 85; RESP 18; TEMP 37.1; O2SAT 97
[2023-01-10 18:32] VITALS: BP 130/84
--- NOTE | 2023-01-10 19:00 | DI.RAD_ITS ---
Exam(s) XR SACRUM COCCYX EXAM: XR SACRUM COCCYX CLINICAL HISTORY: fall, pain over coccyx. TECHNIQUE: 2D digital imaging was performed. COMPARISON: No exams were available for comparison FINDINGS: BONES: No acute fracture is present. No bony destructive lesion is seen. JOINTS: No dislocation present. SOFT TISSUE: Normal. IMPRESSION: Unremarkable radiographs of the sacrum and coccyx.. DATA REPOSITORY: RADIATION DOSE DELIVERED:
--- NOTE | 2023-01-10 19:14 | ED.GENADUL_ITS ---
Discharge Plan Disposition Patient Disposition: Home Condition: Stable Discharge Details Chief Complaint: Orthopedic Clinical Impression: Contusion of coccyx Primary Care Provider: SHWETA NUNN ED Provider: Ananda Coughlin Home Meds and New Rx's Prescriptions: No Action No Known Home Meds Discharge Instructions Instructions: Contusion in Adults (ED) Additional Instructions: Your xray did not show concerning findings if pain continues next week follow up with your primary care provider if you feel more ill, have severe worsening pain or new pain such as abdominal pain return to the emergency department Medical Decision Making 37 yo male who denies chronic medical problems comes in with tailbone pain. He was snowboarding at [employer], not going a fast speed but turned his body to the right and fell landing on his buttocks. Denies hitting his head or loc. Denies any head pain, neck pain, chest pain, abdominal pain, n/v, only has pain in the tailbone area. He arrives stable, caox4 in no distress. He has no midline c/t/l spine tenderness, no signs of trauma to the head, no chest or abdominal tenderness. He does have tendernress over the cocccyx, no palpable or visible deformity. Will obtain xrays to evaluate for fx, suspect coccyx contusion pt stable, no new pain, xray negative. Suspect coccyx contusion, will d/c and have him f/u with pcp if pain continues, return precautions given Differential Diagnosis Differential Diagnosis: contusion, fracture Imaging Data Radiologic Study: Attestation: I personally reviewed and interpreted this imaging study as follows: Imaging: X-Ray Radiologist's impression: no acute findings HPI General Mode of arrival: ambulatory . Date/Time Provider Initiated Documentation: 01/10/23 18:45 . Limitations to Documentation: no limitations . Information obtained by: patient . History of Present Illness 37 year old M presents to the emergency department with the chief complaint of tailbone pain, described as moderate, Quality is described as aching, and it has been constant. No relieving factors improve symptom(s), No exacerbating factors reported . Patient notes denies fever/chills. Patient did receive the following treatments prior to arrival, none Related Data Home Medications Medication Instructions Recorded Confirmed Unknown [No Known Home Meds] 02/10/21 01/10/23 Allergies Allergy/AdvReac Type Severity Reaction Status Date / Time Penicillins Allergy Severe Anaphylaxsi Unverified 01/10/23 18:33 s General Stated Complaint: Orthopedic KENNA: 4 Review of Systems All systems reviewed & are unremarkable except as noted in HPI and below Constitutional Constitutional: Denies chills, Denies fever(s) and Denies weakness Eyes Eyes: Denies loss of vision Cardiovascular Cardiovascular: Denies chest pain and Denies dyspnea Respiratory Respiratory: Denies cough and Denies dyspnea Gastrointestinal Gastrointestinal: Denies abdominal pain, Denies nausea and Denies vomiting Integumentary/Breasts Skin/Breast: Denies rash Neurologic Neurologic: Denies loss of vision and Denies weakness PFSH All Active Problems (Updated 01/10/23 @ 20:10 by Ananda Coughlin MD) Contusion of coccyx (Acute) Muscle strain of left thigh (Acute) Admission for vasectomy (Acute) Knee pain (Acute) Medical History (Updated 01/10/23 @ 20:10 by Ananda Cuoghlin MD) No significant past medical history Surgical History Tonsillectomy Vasectomy Social History Smoking/Tobacco Use Status: Former Tobacco Use Smoking risk assessment performed?: Yes Alcohol Intake: current Alcohol Intake frequency: 0-2 drinks per day Alcohol type: beer Drug use: Daily Substance use type: marijuana Do you feel safe at home: Yes Do you feel safe in your relationship?: Yes Exam Const General: no acute distress Orientation: alert HENMT Head: normal to inspection Ears: external ears normal General nose exam: external nose normal Mouth: moist mucous membranes Eyes General: appearance normal, both eyes and all related structures Neck Neck: normal visual inspection Resp Effort & Inspection: normal respiratory effort and able to speak in complete sentences Cardio Rate: regular rate Back/Spine/Pelvis Back: no CVA tenderness Thoracic/Lumbar Spine: thoracic and lumbar spine normal to inspection, No thoracic spinal tenderness and No lumbar spinal tenderness Skin General skin exam: no rashes or lesions noted Neuro General: patient alert and patient oriented x3 Extrem General: normal to inspection Psych Mental Status: mental status grossly normal Course Vital Signs Vital signs: Vital Signs Temperature 37.1 C 01/10/23 18:30 Pulse 85 01/10/23 18:30 Respiratory Rate 18 01/10/23 18:30 Pulse Oximetry 97 03/29/23 18:30 Temperature 37.1 C 01/10/23 18:30 Temperature Source Temporal Artery Scan 01/10/23 18:30 Pulse 85 01/10/23 18:30 Respiratory Rate 18 01/10/23 18:30 Respiratory Effort Normal, Non-Labored 01/10/23 18:31 Blood Pressure 130/84 01/10/23 18:32 Pulse Oximetry 97 01/10/23 18:30 Oxygen Delivery Method Room Air 01/10/23 18:30 Oxygen Flow Rate 0 01/10/23 18:30 PAWSS Have you Been Recently Intoxicated or Drunk Within the Last 30 days?: No Have you Ever Experienced Previous Episodes of Alcohol Withdrawal?: No Have you ever Experienced Withdrawal Seizures?: No Have you ever Experienced Delirium Tremens(DT)s?: No Have you ever undergone Alcohol Rehabilitation Treatment (i.e, inpt ot outpatient treatment programs)?: No Have you ever Experienced Blackouts?: No Have you ever Combined Alcohol with other Downers within the last 90 days?: No Have you ever Combined Alcohol with any other Substance of Abuse during the last 90 days?: No Positive Blood Alcohol level on Presentation? [PCS.BAL]: No Evidence of Increased Autonomic Activity (i.e. HR>120, tremor, sweating, agitation, nausea)?: No Result: 0
[2023-01-10] MEDS: Acetaminophen 500 MG TAB 1000 MG PO (19:19)
[2023-01-10] MEDS: Ibuprofen 600 MG TAB PO (19:19)
--- NOTE | 2023-01-10 20:01 | DI.VRAD_ITS ---
PROCEDURE INFORMATION: Exam: XR Sacrum and Coccyx, 2 or More Views Exam date and time: 01/10/2023 7:24 PM Age: 37 years old Clinical indication: Injury or trauma; Blunt trauma (contusions or hematomas); Injury date: 01/10; Injury details: Fall snowboarding TECHNIQUE: Imaging protocol: XR of the sacrum and coccyx, 2 or more views. COMPARISON: CR XR LUMBAR SPINE COMPLETE 11/07/2021 7:42 PM FINDINGS: Bones/joints: No discrete or displaced fracture. No dislocation. There is a type V coccyx. Mild degenerative disc disease at the lumbosacral junction. Soft tissues: No focal abnormality. IMPRESSION: No discrete or displaced fracture. Dictated and Authenticated by: Rl Cardona MD. Ordering:OTIS Malave MD
== END 2023-01-10 20:21 | disposition home or self-care (01) ==
PROVIDERS: Emergency Provider Emergency Medicine; PCP Nurse Practitioner Family
DX: S30.0XXA Contusion of lower back and pelvis, initial encounter (principal); V00.311A Fall from snowboard, initial encounter; Y93.23 Activity, snow (alpine) (downhill) skiing, snowboarding, sledding, tobogganing and snow tubing
CPT/HCPCS: 99283; 72220

== ENCOUNTER 2023-01-30 00:45 | Outpatient (CLI) | payer MEDICAID, SELFPAY ==
--- NOTE | 2023-01-30 09:00 | ETT_ITS ---
APPROVED REPORT Exam: Exercise Treadmill Patient Location: Out-Patient Room/Bed: Stress Nurse: Jeanna Mueller RN Ordering Provider:DENISE GLOVER, Contact Number: [phone] BMI: 31.74 Baseline Rhythm: Sinus Bradycardia Indications: Chest pain Medical History Medical History: Chest pain, syncope Cardiac Medications: None Allergies: Penicllins Cardiac Risk Factors: Family hx, smoker Previous Cardiac Procedures: None Pretest Chest Pain Characteristics: None Exercise History: Indeterminate Physical Disabilities: None Lung Sounds: Clear to auscultation Heart Sounds: Regular Stress Test Details Test: Exercise stress testing was performed using a Robert protocol. Rest Stress HR Resting HR Supine: 60 bpm Max Heart Rate (APMHR): 183 bpm Resting HR Standin bpm Target HR (85% APMHR): 156 bpm Max HR Achieved: 158 bpm % of APMHR: 86 Recovery HR: 85 bpm HR response to stress: Normal HR response to stress BP Resting BP Supine: 112/62 mmHg Resting BP Standin/62 mmHg Max BP: 190/68 mmHg Recovery BP: 96/58 mmHg BP response to stress: Normal blood pressure response to stress. ECG Resting ECG: Sinus bradycardia with early repolarization changes Ectopy: None Stress ECG: Sinus Tachycardia ST Change: No significant ST segment changes noted Arrhythmia: None Recovery ECG: Sinus Rhythm Recovery ST Change: No significant ST segment changes noted Recovery Arrhythmia: Occasional PAC's Clinical Reason for Termination: Target HR Achieved, Fatigue Stress Symptoms: General Fatigue, 3/10 chest ache, palpitation Exercise duration: 10 min32 sec Highest Stage Reached: Stage 4: 4.2 mph at 16% grade. Exercise capacity: 12.68 METs Angina Score: Non-Limiting Law Treadmill Score: 6.2 Rate Pressure Product: [id number] Stress ECG Conclusion 1. Resting electrocardiogram was within normal limits 2. Patient exercised on the Robert protocol and completed a workload of 12.68 METS 3. Normal heart rate and blood pressure response to exercise. The patient achieved 86% of predicted heart rate for age 4. There was no electrocardiographic evidence of myocardial ischemia 5. There were no significant dysrhythmias Law Treadmill Score is 6.2 which is Low risk. Stress Test Summary STAGE Time (mins) Speed (mph) Grade (%) HR BP SpO2 SYMPTOMS METS Supine 49 112/62 97 Standing 55 112/62 1 3 1.7 10 96 110/56 4.5 2 6 2.5 12 121 120/56 7 3 9 3.4 14 125 160/62 Chest pressure 1/10 10 4 12 4.2 16 158 13 1 min recovery 107 190/68 98 Chest pressure 3/10, mod dyspnea 3 min recovery 76 142/58 97 Chest presure resolved, dyspnea resolving 6 min recovery 85 96/58 98 Resolved dyspnea
== END 2023-01-30 01:05 ==
LOC: DI 00:46
PROVIDERS: PCP Nurse Practitioner Family; Visit Provider Nurse Practitioner Family
DX: R07.89 Other chest pain (principal)
CPT/HCPCS: 93017

== ENCOUNTER 2023-03-05 10:07 | Outpatient (REF) | payer MEDICAID, SELFPAY ==
[2023-03-05 16:44] LABS: Anion Gap 8.1 mmol/L (3-11); BUN 10 mg/dL (7-18); CO2 25.9 mmol/L (21.0-32.0); CREATININE 1.1 mg/dL (0.70-1.30); Calcium 9.3 mg/dL (8.5-10.1); Calculated LDL 163 mg/dL (<100); Chloride 106 mmol/L (98-107); Cholesterol 254 mg/dL (<200); Estimated GFR 88.67 (mL/min/1.73m2); Glucose 108 mg/dL (74-106); HDL Cholesterol 33 mg/dL (40-60); Sodium 140 mmol/L (136-145); Triglyceride 294 mg/dL (<150)
== END 2023-03-05 10:08 | disposition home or self-care (01) ==
LOC: NCHCN 10:07
PROVIDERS: PCP Nurse Practitioner Family; Visit Provider Nurse Practitioner Family
DX: R07.89 Other chest pain (principal); F41.8 Other specified anxiety disorders; E78.5 Hyperlipidemia, unspecified; E66.8 Other obesity; Z68.33 Body mass index [BMI] 33.0-33.9, adult
CPT/HCPCS: 80048; 80061

== ENCOUNTER 2024-07-15 14:43 | Emergency (ER) | payer MEDICAID, SELFPAY ==
[2024-07-15 15:06] VITALS: BP 133/99; PULSE 77; RESP 16; TEMP 36.6; O2SAT 97
--- NOTE | 2024-07-15 15:35 | W.ED.GENAD ---
Discharge Plan Disposition Patient Disposition: Home Discharge Details Clinical Impression: Pain in Achilles tendon Primary Care Provider: SHWETA NUNN ED Provider: Florentino Reich Home Meds and New Rx's Prescriptions: No Action No Known Home Meds Discharge Instructions Instructions: Achilles tendon injury Additional Instructions: You are seen in the emergency department for your Achilles tendon pain. You are receiving a walking boot. Please bear weight on your right lower extremity as tolerated. Please return to the emergency department as we discussed if your foot loses sensation if you take any falls or if you have any difficulty breathing. Otherwise please call the orthopedic team for follow-up. For your pain please take medications as follows: 1. Take acetaminophen (Tylenol), 1,000 mg (two 500 mg tabs) every 6 hours [2. Take ibuprofen (Advil), 400 mg every 6 hours.] Referrals: [facility] [Provider Group] HPI General Date/Time Provider Initiated Documentation: 07/15/24 14:44. HPI Narrative: MDM This is an overall very well-appearing normothermic and not tachycardic 39-year-old male with right Achilles mild ecchymosis and tenderness with an anechoic area on ultrasound concerning for partial Achilles tendon injury versus sprain in the setting of the patient's reassuring Reyna test. No erythema to suggest cellulitis. No fluctuance to suggest abscess. No pain out of proportion to suggest necrotizing soft tissue infection. No rash to suggest zoster. Will obtain plain films to assess for any acute osseous abnormalities. No indication for labs. No palpable cords to suggest DVT. No recent fluoroquinolone use. No midfoot instability to suggest Lisfranc injury. No lateral foot pain to suggest García fracture. Will touch base with orthopedics. 4 PM I was in touch with Dr. Pacheco. He came to the patient's bedside to evaluate the patient. 4:20 PM I spoke with Dr. Pacheco. He felt that the patient had right Achilles tendinopathy for which he recommended a walking boot weightbearing as tolerated with outpatient orthopedic follow-up as patient will likely benefit from an MRI. We discussed return indications with worsening pain any falls or any inability to move his foot. He understood his return indications and was discharged with empiric trial of expectant outpatient management. HPI This is a previously healthy 39-year-old male arrived to the emergency department via private vehicle in the setting of right Achilles pain which has been ongoing for the past 5 approximately months. 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 He was running in the playground earlier this year he developed pain. His pain is continued. Today he developed worsening pain and noticed some bruising. He is unable to see his PCP for the next 3 weeks. He has not received a referral for physical therapy. He has been treated conservatively. He has not yet had imaging. He denies any recent antibiotic use. Exam General: Well-appearing in no acute distress speaking in complete sentences. Head: Normocephalic, atraumatic. Eye: Extraocular eye movements intact. No conjunctival injection. No scleral icterus. Ear, nose, mouth, throat: Grossly normal inspection. Normal voice, handling secretions normally. Neck: Trachea midline. Cardiovascular: Well-perfused distal extremities. Respiratory: Nonlabored respiration. Gastrointestinal: Nondistended abdomen. Musculoskeletal: Right lower extremity On the lateral aspect of the patient's distal right tibia there is a small approximately 2 x 2 cm ecchymotic area. No pain with palpation of knee tibia lateral nor medial malleolus. Full range of motion in knee. No midfoot instability. No palpable cords. No rash to right lower extremity. No fluctuance. Skin: Normal for age and race, grossly normal temperature and turgor. No acute rash. Neurologic: Alert and appropriate, no apparent acute deficits. Psychiatric: Mood and manner are appropriate. Grooming and personal hygiene are appropriate. Related Data Home Medications ?Medication ?Instructions ?Recorded ?Confirmed Unknown [No Known Home Meds] 02/10/21 07/15/24 Allergies Allergy/AdvReac Type Severity Reaction Status Date / Time Penicillins Allergy Severe Anaphylaxsi Unverified 01/10/23 18:33 s General Stated Complaint: Orthopedic KENNA: 4 Course Vital Signs Vital signs: Vital Signs Temperature 36.6 C 07/15/24 15:06 Pulse 77 07/15/24 15:06 Respiratory Rate 16 07/15/24 15:06 Blood Pressure 133/99 H 07/15/24 15:06 Pulse Oximetry 97 07/15/24 15:06 Temperature 36.6 C 07/15/24 15:06 Temperature Source Tympanic 07/15/24 15:06 Pulse 77 07/15/24 15:06 Respiratory Rate 16 07/15/24 15:06 Blood Pressure 133/99 H 07/15/24 15:06 Blood Pressure Position Sitting 07/15/24 15:06 Pulse Oximetry 97 07/15/24 15:06 Oxygen Delivery Method Room Air 07/15/24 15:06 Oxygen Flow Rate 0 07/15/24 15:06 Pain Level 6 07/15/24 15:06 Medical Decision Making Quality:SDOH Health Related Social Needs: No Data to Display PFSH All Active Problems (Updated 07/15/24 @ 16:24 by Florentino Reich MD) Pain in Achilles tendon (Acute) Muscle strain of left thigh (Acute) Admission for vasectomy (Acute) Knee pain (Acute) Medical History (Updated 07/15/24 @ 16:24 by Florentino Reich MD) No significant past medical history Surgical History Vasectomy Tonsillectomy Social History Smoking/Tobacco Use Status: Former Tobacco Use Smoking risk assessment performed?: Yes Alcohol Intake: current Alcohol Intake frequency: 0-2 drinks per day Alcohol type: beer Drug use: Daily Substance use type: marijuana Do you feel safe at home: Yes Do you feel safe in your relationship?: Yes POCUS Exam (ED) Limited Soft Tissue Exam DATE OF EXAM: 07/15/24 TIME OF EXAM: 16:04 PROVIDER THAT PERFORMED THE STUDY: Florentino Reich IS THIS A REPEAT EXAM DURING THIS ENCOUNTER: No LOCATION OF EXAM: Lower extremity/right REASON FOR EXAM: Pain Exam Complete INCIDENTAL FINDINGS: Anechoic fluid collection adjacent to distal Achilles tendon right
--- NOTE | 2024-07-15 15:45 | DI.RAD_ITS ---
Exam(s) XR ANKLE RT COMPLETE XR TIB/FIB RT EXAM: XR TIB/FIB RT CLINICAL HISTORY: Achilles pain. TECHNIQUE: 2D digital imaging was performed. Two views of the tibia. And fibula three views of the ankle COMPARISON: CR XR ANKLE RT COMPLETE from 07/15/2024 FINDINGS: BONES: No acute fracture is present. No bony destructive lesion is seen. Visualized portion of knee a nd ankle joints are unremarkable. SOFT TISSUE: Normal. IMPRESSION: Unremarkable radiographs of the right tibia and fibula and right ankle. DATA REPOSITORY: RADIATION DOSE DELIVERED:
--- NOTE | 2024-07-15 16:26 | W.ORTHOCONSU ---
Date of service: 07/15/24 Time of Service: 16:05 History of Present Illness History of Present Illness Chief Complaint: Right Achilles pain Narrative: Rl is a 39-year-old male who presented to the emergency department for increasing right posterior ankle pain. He reports that maybe 5 or 6 months ago he started noticing this pain over the posterior aspect of his ankle adjacent to the Achilles tendon just proximal to the calcaneus. This has been ongoing although waxing and waning in its severity. However, he was out walking with his son when he felt something release or increase in intensify about the same area around his Achilles tendon. He noticed some mild bruising. He presented to the emergency department with the symptoms. He is been able to weight-bear but it hurts. He denies any numbness or tingling. He denies issues with the left side. He has not seen any other specialist for this nor sought out any other formal treatment. Consults Consult date: 07/15/24 Requesting physician: Florentino Reich Consult Reason Right Achilles Tear Assessment and Plan Assessment and plan (1) Noninsertional tendinopathy of left Achilles tendon: Status: Acute (2) Achilles tendinosis of left lower extremity: Status: Acute Assessment and plan: Rl is a 39-year-old active male who has Achilles tendinopathy about the left Achilles. This is classic with fusiform swelling. At this point, given the severity of his symptoms, I recommend a period of immobilization. He should be placed in a fracture walker boot. He should stay in his boot for all weightbearing activities. He may come out of the boot when he is not walking or ambulating. Given the severity of his symptoms and the duration an MRI could be considered but given a period of time with the immobilization. I would recommend immobilization for approximate 6 weeks and then we will start a therapy guided program for Achilles tendinopathy. This rarely require surgical intervention. It can be associated with increased rates of tearing for any traumatic dorsiflexion events but it should not change her treatment regimen at this time. Review of Systems All systems reviewed & are unremarkable except as noted in HPI and below PFSH All Active Problems (Updated 07/16/24 @ 17:44 by Jose Luis Pacheco MD) Achilles tendinosis of left lower extremity (Acute) Noninsertional tendinopathy of left Achilles tendon (Acute) Pain in Achilles tendon (Acute) Muscle strain of left thigh (Acute) Admission for vasectomy (Acute) Knee pain (Acute) Medical History No significant past medical history Surgical History Vasectomy Tonsillectomy Social History Smoking/Tobacco Use Status: Former Tobacco Use Smoking risk assessment performed?: Yes Alcohol Intake: current Alcohol Intake frequency: 0-2 drinks per day Alcohol type: beer Drug use: Daily Substance use type: marijuana Do you feel safe at home: Yes Do you feel safe in your relationship?: Yes Exam Narrative Exam Narrative: Resting in the hospital stretcher. No acute distress. Alert and orient x 3. Evaluation of the right leg shows some very mild bruising over the medial aspect of the hindfoot adjacent to the calcaneal tuberosity and insertion of the Achilles tendon. He has fusiform swelling of the Achilles tendon proximal to his insertion, by about 4 to 6 cm. There is exquisite pain to palpation about this area. There is no clear defect. Reyna test is negative. He is able to actively plantarflex against resistance although causes pain. No pain with hindfoot eversion or inversion. Sensation intact light touch over the deep and superficial peroneal nerve and tibial nerve. Palpable DP and PT pulse. Results Last Vital Signs Temp 36.6 C 07/15/24 15:06 Pulse 77 07/15/24 15:06 Resp 16 07/15/24 15:06 BP 133/99 H 07/15/24 15:06 Pulse Ox 97 07/15/24 15:06 Imaging Imaging Studies: X-ray of the left ankle and left tib-fib demonstrate no bony abnormality.
== END 2024-07-15 17:14 | disposition home or self-care (01) ==
PROVIDERS: Emergency Provider Emergency Medicine; PCP Nurse Practitioner Family
DX: M25.571 Pain in right ankle and joints of right foot (principal); Z87.891 Personal history of nicotine dependence
CPT/HCPCS: 76882; 99284; 73590; 73610; 99283

== ENCOUNTER 2024-09-12 00:27 | Outpatient (CLI) | payer MEDICAID, SELFPAY ==
--- NOTE | 2024-09-12 08:53 | DI.MRI_ITS ---
Exam(s) MR LOWER JOINT RT WO EXAM: MR LOWER JOINT RT WO CLINICAL HISTORY: PAIN M76.61 ACHILLES TENDINITIS RT LEG TECHNIQUE: Multiplanar multisequence MRI was performed without intravenous contrast. COMPARISON: CR XR ANKLE RT COMPLETE from 07/15/2024 CR XR TIB/FIB RT from 07/15/2024 FINDINGS: SKIN: No evidence of ulcer nor subcutaneous tract. BONES/JOINTS: No evidence of fracture nor bone contusion. No joint effusion is present. The talar do me appears unremarkable. The ankle mortise is maintained. There is no evidence of osseous tarsal c oalition. On the dorsal aspect of the hindfoot there is a small fluid collection just dorsal to the distal talu s measuring 1.2 cm long by 1.3 cm wide by 0.5 cm thick. this probably represents a para-articular ga nglia on off the dorsal aspect of the talonavicular joint LIGAMENTS: The anterior and posterior tibiofibular and calcaneofibular ligaments are intact. The ante rior and posterior talofibular ligaments are intact. The deltoid ligament is intact. SINUS TARSI: There is no loss of the normal fat signal in this space. Interosseous ligament is intac t. There is no evidence of sinus tarsi ganglion cyst. ANTEROLATERAL GUTTER:There is no abnormal signal/abnormal tissue in this space. MUSCULOTENDINOUS STRUCTURES: Achilles tendon: There is significant abnormal fusiform thickening of the Achilles tendon with maximu m AP thickness 1.1 cm, this maximum thickness located approximately 5 cm above the insertional aspect . There is only mild intrasubstance signal abnormality at this level with no evidence of significant tear. Appearance is more of chronic tendinitis/tendinosis. The insertional aspect on the posterior calcaneus appears intact. There is no enthesophyte at this level. No evidence to suggest Nelsy s yndrome. There is only minimal edema in the pre Achilles fat pad. There is only trace fluid in the retrocalcaneal bursa.. No abnormal intraosseous signal in the calcaneus. Plantar fascia: There is no evidence of inferior calcaneal spur. No evidence of tear, abnormal thick ening, nor abnormal nodularity. Anterior Extensor tendons: Unremarkable. Medial Tendons: Posterior Tibialis: Unremarkable. No tear or tenosynovitis evident. Flexor Digitorum longus: Unremarkable. No tear or tenosynovitis evident. Flexor Hallicus longus: Unremarkable. No tear or tenosynovitis evident. Lateral Tendons: Peroneus longus: Unremarkable. No tear nor tenosynovitis evident. Peroneus brevis:Unremarkable. No tear nor tenosynovitis evident. SOFT TISSUES: Unremarkable. OTHER FINDINGS: More distally in the foot there is some degenerative change evident at the articulati on between the navicular and medial cuneiform. There is also some degenerative change evident in the 1st and 2nd tarsometatarsal joints. IMPRESSION: 1. The main finding here is abnormal fusiform thickening thickening of the Achilles tendon consisten t with chronic tendinitis-tendinosis. There is no evidence of tear of the tendon. 2. No evidence of plantar fasciitis, plantar fascia thickening, nor significant inferior calcaneal sp ur. 3. Other mild findings as above. DATA REPOSITORY:
== END 2024-09-12 00:47 ==
LOC: DI 00:27
PROVIDERS: PCP Nurse Practitioner Family; Visit Provider Student in an Organized Health Care Education/Training Program
DX: M76.61 Achilles tendinitis, right leg (principal)
CPT/HCPCS: 73721

== ENCOUNTER 2024-12-31 18:39 | Outpatient (REF) | payer MEDICAID, SELFPAY ==
--- NOTE | 2024-12-31 19:16 | DI.RAD_ITS ---
Exam(s) XR SHOULDER RT COMPLETE 2+V EXAM: XR SHOULDER RT COMPLETE 2+V CLINICAL HISTORY: Pain in right shoulder ICD-10: M25.511. TECHNIQUE: 2D digital imaging was performed. Five views. COMPARISON: CR LEFT CLAVICLE from 10/09/2017 FINDINGS: BONES: No acute fracture is present. No bony destructive lesion is seen. JOINTS: No dislocation present. The joint is not widened. There is minimal periarticular spurring. There is a small erosion of the distal end of the clavicle which could be secondary to inflammatory arthritis. SOFT TISSUE: Normal. IMPRESSION: Small erosion at the distal clavicle could be secondary to inflammatory arthritis. Clinical correlat ion recommended. No acute posttraumatic abnormality. DATA REPOSITORY: RADIATION DOSE DELIVERED:
--- NOTE | 2024-12-31 20:42 | DI.VRAD_ITS ---
PROCEDURE INFORMATION: Exam: XR Right Shoulder Exam date and time: 12/31/2024 7:11 PM Age: 39 years old Clinical indication: Right shoulder pain TECHNIQUE: Imaging protocol: Radiologic exam of the right shoulder. Views: 2 or more views. COMPARISON: CR XR CHEST 2V PA LATERAL 05/18/2022 2:31 PM FINDINGS: Bones/joints: There is a small erosion on the superior articular surface of the distal clavicle. No acute fracture or dislocation. Normal glenohumeral and acromioclavicular joint spacing and alignment. Soft tissues: Normal. IMPRESSION: Mild distal clavicular erosion. Consider atraumatic osteolysis, rheumatoid arthritis, or psoriatic arthropathy. Dictated and Authenticated by: Keith Fox MD. Orderin Delfina Davis MD
== END 2024-12-31 18:59 ==
LOC: DI 18:39
PROVIDERS: PCP Nurse Practitioner Family; Visit Provider Physician Assistant Medical
DX: M25.511 Pain in right shoulder (principal)
CPT/HCPCS: 73030

== ENCOUNTER 2025-02-20 00:18 | Outpatient (CLI) | payer MEDICAID, SELFPAY ==
--- NOTE | 2025-02-20 06:12 | DI.MRI_ITS ---
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 COMPARISON: MR MRI - L UPPER JOINT WO CONT from 02/10/2014 CR,XR XR SHOULDER RT COMPLETE 2+V from 12/31/2024 FINDINGS: MARROW:There is no evidence of fracture, Hill-Sachs deformity, nor ominous osseous lesions. GLENOHUMERAL JOINT: No joint effusion nor obvious loose intra-articular bodies. There are mild degen erative changes in the glenohumeral joint. There is a small degenerative subarticular cyst in the in ferior aspect of the osseous glenoid. No osteophytes evident. ROTATOR CUFF MECHANISM: AC JOINT/ACROMIUM: There is bone edema in the distal lateral clavicle as well as oz on the acromial s yanet of the AC joint. There are degenerative subarticular cysts on both sides of this joint. No join t space widening. No obvious cortical loss. There is no air-gas in the overlying soft tissues or maldonado sceptibility artifact to suggest prior surgery or wound. There is no evidence of os acromiale. Supraspinatus: There is some mild tendinitis signal evident in the anterior aspect of the supraspinat us tendon. There is a small focus of partial thickness tearing on the articular side of the conjoine d tendon just above the greater tuberosity. No atrophy. There is a sliver of fluid signal in the lateral aspect of the subacromial bursa space over this nona on. Infraspinatus: Mild insertional tendinitis signal. No full-thickness tear. No atrophy. Teres Minor: Intact. No evidence of tear nor muscle atrophy. Subscapularis/anterior cuff: Intact. No abnormal signal at the level of the multipennate insertional fibers. No significant tear nor atrophy. BICEPS TENDON: Exhibits normal position within the intertubercular groove. No evidence of tear. No tenosynovitis. LABRUM: No significant signal abnormality in the superior labrum posterior to the biceps insertion. In the posterior labrum there is a E thin fluid signal focus in the mid-posterior labrum consistent w ith small tear. This is immediately above the degenerative subarticular glenoid cyst at this level. There is no obvious tear of the anterior labrum. No Bankart lesion seen. Inferior labrum appears in tact. No significant tearing of the inferior glenohumeral ligament. IMPRESSION: 1. The there is some tendinitis signal in the supraspinatus and infraspinatus and there is a small ar ea of partial-thickness articular side tear at the foot pad insertional aspect of the conjoined tendo n of the supraspinatus and infraspinatus. No retraction of the musculotendinous junction. No muscle atrophy. There is a very thin sliver of fluid signal overlying this area in the subacromial space b ut there is no identifiable full-thickness tear of the rotator cuff tendon. Therefore this is probab ly some mild reactive adjacent soft tissue edema; not enough to call bursitis. There are no abnormal ities in the anterior cuff subscapularis nor in the teres minor. 2. There are prominent findings in the acromioclavicular joint with subarticular cysts on both sides the joint and intraosseous edema in the distal clavicle and acromium adjacent to the joint space. Th ere does not appear to be breakdown of these degenerative subarticular cysts nor cortical loss and th erefore these being true erosions or of infectious etiology are less likely. The small degenerative subarticular cysts on both sides the joint exhibit thin hypointense sclerotic borders; therefore more likely of degenerate etiology. 3. There appears to be a small posterior labral tear. DATA REPOSITORY:
== END 2025-02-20 00:38 ==
LOC: DI 00:18
PROVIDERS: PCP Nurse Practitioner Family; Visit Provider Student in an Organized Health Care Education/Training Program
DX: M89.511 Osteolysis, right shoulder (principal); M75.112 Incomplete rotator cuff tear or rupture of left shoulder, not specified as traumatic
CPT/HCPCS: 73221

== ENCOUNTER 2025-08-26 14:36 | Outpatient (CLI) | payer MEDICAID, SELFPAY ==
--- NOTE | 2025-08-26 14:15 | DI.RAD_ITS ---
Exam(s) XR SHOULDER RT 1V EXAM: XR SHOULDER RT 1V CLINICAL HISTORY: F/U [facility]. TECHNIQUE: 2D digital imaging was performed. Single AP neutral view COMPARISON: CR,XR XR SHOULDER RT COMPLETE 2+V from 12/31/2024 FINDINGS: BONES: No acute fracture is present. No bony destructive lesion is seen. JOINTS: No dislocation present. There is now widening of the acromioclavicular joint. No erosions are identified. Findings could be secondary to prior surgery. Glenohumeral joint is unremarkable. SOFT TISSUE: Normal. IMPRESSION: Widening of the acromioclavicular joint could be secondary to previous resection. No cysts are identified. DATA REPOSITORY: RADIATION DOSE DELIVERED:
== END 2025-08-26 14:37 | disposition home or self-care (01) ==
LOC: DIORS 14:37
PROVIDERS: PCP Nurse Practitioner Family; Visit Provider Student in an Organized Health Care Education/Training Program
DX: M89.511 Osteolysis, right shoulder (principal)
CPT/HCPCS: 73020

== ENCOUNTER 2025-10-01 18:35 | Outpatient (REF) | payer MEDICAID, SELFPAY ==
[2025-10-01 19:49] LABS: Cholesterol 219 mg/dL (<200); HDL Cholesterol 28 mg/dL (>or=40)
[2025-10-01 19:52] LABS: Hemoglobin A1C 5.2 % (<5.7)
== END 2025-10-01 18:36 | disposition home or self-care (01) ==
LOC: NCHCN 18:35
PROVIDERS: PCP Nurse Practitioner Family
DX: Z13.1 Encounter for screening for diabetes mellitus (principal); E78.5 Hyperlipidemia, unspecified
CPT/HCPCS: 80061; 83036